=== PATIENT | female | born 1950 | race Caucasian/White ===

== ENCOUNTER 2024-08-31 07:52 | Observation (INO) ==
--- NOTE | 2024-08-31 08:35 | Emergency Department Note ---
History of Present Illness General Chief complaint: Illness Stated complaint: TROUBLE BREATHING, LOW GRADE FEVER, SWOLLEN THROAT Time Seen by Provider: 08/31/24 08:23 Source: patient, family ( who is at the bed), RN notes reviewed and old records reviewed (Old medical records were attempted to be reviewed but there are no old records at this hospital. Nurse's notes were reviewed and I agree with.) Mode of arrival: ambulatory Limitations: no limitations History of Present Illness Maximum Pain Intensity: 6 This patient is a 74-year-old female who comes in after complaining of a sore throat and cough. She started feeling sick on Sunday or she initially had nausea vomiting diarrhea but that got better she has a cough which is nonproductive she had a low-grade temperature her was also sick. She did a home COVID test yesterday was positive her throat was very sore this morning it was those gotten a lot better she says it has been restricting how much she eats or drinks at times she occasionally feels short of breath with this no chest pain or palpitation no abdominal pain. She has had decreased urine output she feels and decreased saliva. She has been try to drink some electrolytes. No rash. Home Medications Medication Instructions Recorded Confirmed Type calcium carbonate 500 mg PO DAILY 08/31/24 08/31/24 History turmeric 400 mg capsule 400 mg PO DAILY 08/31/24 08/31/24 History vitamins A,C,X-lwel-rhnuia 4,296 1 cap PO AMPM 08/31/24 08/31/24 History mcg-226 mg-90 mg capsule (PreserVision AREDS) Allergies Allergy/AdvReac Type Severity Reaction Status Date / Time morphine Allergy Verified 08/31/24 09:02 Penicillins Allergy Verified 08/31/24 09:02 Past Med/Surg History Problem List (Updated 08/31/24 @ 14:38 by Ariel Jenkins MD) Pharyngitis (Acute) ST segment changes on electrocardiogram (Acute) HLD (hyperlipidemia) Chest pain at rest (Acute) COVID-19 (Acute) Encounter for HCV screening test for low risk patient Medicare annual wellness visit, subsequent Medical History HLD (hyperlipidemia) Surgical History Hx of cholecystectomy Hx of hysterectomy, total History of cataract surgery Hx of tonsillectomy Family History Aunt Breast cancer Social History Smoking Status: Never smoker Second Hand Exposure: No; Do You Dip or Chew Tobacco: No; Hx Alcohol Use: Yes Alcohol type: wine Alcohol Intake Frequency: 2-4 x/Month Hx Substance Use: No Preferred Language: Moroccan Beliefs That Will Affect Care: None marital status: Current Living Situation: Spouse current occupational status: retired current occupation: book keeping How many Children do You have: 2 Feels Safe at Home: Yes Childhood Exposure to Second-Hand Smoke: Yes Dental Care, Regularly: Yes Seatbelt Use: always Sunscreen Use: No Do you think of yourself as: straight/heterosexual Gender Identity: Female Review of Systems A total of 10 systems reviewed and were otherwise negative Physical Exam Vital Signs Vital Signs - 24 hr 08/31/24 07:59 08/31/24 08:48 08/31/24 08:50 Temperature 37.4 C Temperature Source Temporal Artery Scan Pulse Rate 97 H 79 84 Pulse Rate [Finger] Pulse Rate from SpO2 Sensor Pulse Rhythm Regular Pulse Rhythm [Finger] Pulse Strength [Finger] Respiratory Rate 20 20 Respiratory Effort / Characteristics Non-Labored Spontaneous Respiratory Depth Normal Respiratory Pattern Regular Blood Pressure 144/89 H Blood Pressure [Right Arm] Blood Pressure Mean 107 Blood Pressure Mean [Right Arm] Blood Pressure Position [Right Arm] Pulse Oximetry 96 96 Oxygen Delivery Method Room Air Room Air Sepsis Recent Fever Within 48 Hours No Sepsis New/Unexplained Change in Mental Status N/A Sepsis Action Taken by Nursing No Action Required 08/31/24 08:50 08/31/24 09:27 08/31/24 10:00 Temperature Temperature Source Pulse Rate 84 78 73 Pulse Rate [Finger] Pulse Rate from SpO2 Sensor 82 79 75 Pulse Rhythm Pulse Rhythm [Finger] Pulse Strength [Finger] Respiratory Rate 21 22 13 Respiratory Effort / Characteristics Respiratory Depth Respiratory Pattern Blood Pressure 170/84 H 141/81 H 170/84 H Blood Pressure [Right Arm] Blood Pressure Mean 115 101 112 Blood Pressure Mean [Right Arm] Blood Pressure Position [Right Arm] Pulse Oximetry 95 95 98 Oxygen Delivery Method Sepsis Recent Fever Within 48 Hours Sepsis New/Unexplained Change in Mental Status Sepsis Action Taken by Nursing 08/31/24 11:00 08/31/24 12:33 08/31/24 14:00 Temperature Temperature Source Pulse Rate Pulse Rate [Finger] 75 73 79 Pulse Rate from SpO2 Sensor Pulse Rhythm Pulse Rhythm [Finger] Regular Regular Regular Pulse Strength [Finger] Normal Normal Normal Respiratory Rate 18 18 18 Respiratory Effort / Characteristics Non-Labored Spontaneous Non-Labored Spontaneous Non-Labored Spontaneous Respiratory Depth Normal Normal Normal Respiratory Pattern Blood Pressure Blood Pressure [Right Arm] 162/82 H 140/71 165/87 H Blood Pressure Mean Blood Pressure Mean [Right Arm] 108 94 113 Blood Pressure Position [Right Arm] Sitting Lying Lying Pulse Oximetry 96 94 96 Oxygen Delivery Method Room Air Room Air Room Air Sepsis Recent Fever Within 48 Hours Sepsis New/Unexplained Change in Mental Status Sepsis Action Taken by Nursing 08/31/24 14:27 Temperature Temperature Source Pulse Rate 77 Pulse Rate [Finger] Pulse Rate from SpO2 Sensor Pulse Rhythm Pulse Rhythm [Finger] Pulse Strength [Finger] Respiratory Rate Respiratory Effort / Characteristics Respiratory Depth Respiratory Pattern Blood Pressure Blood Pressure [Right Arm] Blood Pressure Mean Blood Pressure Mean [Right Arm] Blood Pressure Position [Right Arm] Pulse Oximetry Oxygen Delivery Method Sepsis Recent Fever Within 48 Hours Sepsis New/Unexplained Change in Mental Status Sepsis Action Taken by Nursing General: Well developed well nourished [id number] older female who appears in no acute distress, breathing comfortably on room air. Normal speech, not muffled, speaking swallow without difficulty. No drooling. HEENT: Normal cephalic atraumatic. Pupils are equal round and reactive to light. Extraocular movements are intact. Oropharynx is pink with moist mucous membranes. No swelling of the mouth lips or tongue. No stridor. No swelling the posterior oropharynx. Posterior oropharynx is wide open. No swelling of the tongue no angioedema. Neck: Supple with a midline trachea. No meningeal signs or stiffness, no JVD or bruits. No Stridor. Chest: Clear to auscultation bilaterally. No wheezes or rhonchi. No increased work of breathing. Heart: Regular rate and rhythm without murmurs or gallops. Abdomen: Soft nontender, nondistended without rebound guarding or rigidity. Extremities: No cyanosis clubbing or edema. No calf tenderness or assymetry Spine/Back. Non tender to palpation. No CVA tenderness Skin: Good turgor without rashes. Neurologic exam: Cranial nerves two through 12 are intact. Motor and sensation are intact and symmetrical throughout. Course Administered Medications Discontinued Medications Sodium Chloride (Nss) 1,000 mls @ 999 mls/hr IV .Q1H1M ONE Stop: 08/31/24 09:33 Last Infusion: 08/31/24 09:53 Dose: Infused Documented By: Admin: 08/31/24 09:00 Dose: 999 mls/hr Documented By: EVIE Ioversol (Optiray 320 125ml) 118 ml IV ONCE ONE Stop: 08/31/24 10:46 Last Admin: 08/31/24 10:45 Dose: 118 ml Documented By: SOFIA Ketorolac Tromethamine (Ketorolac Tromethamine 15 Mg/Ml Vial) 10 mg IV NOW ONE Stop: 08/31/24 08:34 Last Admin: 08/31/24 09:01 Dose: 10 mg Documented By: EVIE Medical Decision Making Differential Diagnosis COVID, strep pharyngitis, URI, pneumonia, dehydration, electrolyte or metabolic abnormality Medical Records Attestation: I reviewed the patient's medical records. Home Medications Current Medication List: was personally reviewed by me Laboratory Data Attestation: I reviewed the patient's lab results. 08/31/24 09:05 08/31/24 09:05 Lab Results 08/31/24 08/31/24 Range/Units 09:00 09:05 WBC 6.29 (4.8-10.8) K/ul RBC 4.69 (4.20-5.40) M/uL Hgb 13.8 (12.0-16.0) g/dl Hct 41.2 (37.0-47.0) % MCV 87.8 (80.0-100.0) fL MCH 29.4 (25.0-34.0) pg MCHC 33.5 (32.0-36.0) g/dL RDW Std Deviation 43.7 (36.4-46.3) fL RDW Coeff of Annette 13.6 (11.5-14.5) % Plt Count 152 (130-400) K/uL MPV 10.1 (9.4-12.4) fL Immature Gran % (Auto) 0.3 % Neut % (Auto) 74.1 % Lymph % (Auto) 12.7 % Pender % (Auto) 10.2 % Eos % (Auto) 2.4 % Baso % (Auto) 0.3 % Neut # (Auto) 4.66 (1.40-6.50) K/uL Lymph # (Auto) 0.80 L (1.20-3.40) K/uL Pender # (Auto) 0.64 H (0.11-0.59) K/uL Eos # (Auto) 0.15 (0.00-0.50) K/uL Baso # (Auto) 0.02 (0.00-0.20) K/uL Immature Gran # (Auto) 0.02 (0.01-0.20) K/uL D-Dimer 640 H* (0-500) ug/L FEU Sodium 135 L (136-145) mmol/L Potassium 3.6 (3.5-5.1) mmol/L Chloride 101 (98-107) mmol/L Carbon Dioxide 27 (21-32) mmol/L Anion Gap 7 (3-11) BUN 12 (6-23) mg/dl Creatinine 0.61 (0.6-1.2) mg/dl Est Cr Clr Drug Dosing 77.4 ml/min eGFR 93.76 BUN/Creatinine Ratio 19.7 (10-20) Glucose 115 H (70-99(Fasting)) mg/dl Calcium 8.6 (8.6-10.3) mg/dl Total Bilirubin 0.4 (0.2-1.0) mg/dl AST 17 (13-39) U/L ALT 17 (7-52) U/L Alkaline Phosphatase 57 (34-104) U/L Troponin I High Sens 7.3 (0-14) pg/ml Total Protein 6.5 (6.0-8.3) gm/dl Albumin 4.1 (3.4-5.0) gm/dl Globulin 2.4 L (2.5-4.0) gm/dl Albumin/Globulin Ratio 1.7 (0.9-2) SARS-CoV-2, RNA, NAAT POSITIVE A (NEGATIVE) Group A Strep (PCR) NOT DETECTED (NotDetected) Imaging Data Attestation: I personally reviewed and interpreted this imaging study as follows: My Impression: Chest x-rayno acute infiltrate, failure, pneumothorax seen. There seems to be some hilar prominence bilaterally Radiologist's Impression: Chest X-Ray 08/31/24 08:33 SINGLE VIEW CHEST CLINICAL HISTORY: Atypical chest pain. FINDINGS: An AP, portable, upright chest radiograph is obtained. No prior studies are available for comparison at the time of dictation. The heart is mildly enlarged. The pulmonary vasculature is noncongested. There is bibasilar atelectasis and mild elevation of left hemidiaphragm. The lungs and pleural spaces are otherwise clear. No pneumothorax is seen. The skeletal structures are osteopenic. The bony thorax is grossly intact. IMPRESSION: No acute cardiopulmonary abnormality. ACT 112: Negative or not required by law. Electronically signed by: Jonathan Back M.D. 08/31/2024 9:11 AM Chest CTA 08/31/24 10:24 CT angio chest PE protocol CLINICAL HISTORY: PE TECHNIQUE: Multidetector row helical CT of the chest was performed with angiographic protocol. Coronal and sagittal reformations were obtained. Coronal and sagittal MIPS were obtained from the axial data set and were submitted for review. Automated dose lowering techniques and/or adjustment according to patient size were utilized for this exam. Comparison: Comparison is made to chest radiograph 08/31/2024 FINDINGS: Lungs and pleura: Pulmonary nodules are seen including a 3 mm nodule in the right apex (series 4 image 177) and a 3 mm nodule in the left lower lobe (image 88). Heart and pericardium: Heart size is normal. No pericardial effusion. Vessels: No evidence of pulmonary embolism. Mediastinum and deanne: Unremarkable. Chest wall and lower neck: Small thyroid nodules are noted which do not require follow-up by ACR criteria. Abdomen: A hiatal hernia is seen. Bones: Degenerative changes in the thoracic spine. IMPRESSION: 1. No acute abnormality and in particular no evidence of pulmonary embolus. 2. Pulmonary nodules as above. According to Fleischner criteria, no follow-up is required in low risk patients, in high-risk patients, a 12 month follow-up CT can be optionally performed. ACT 112: Negative or not required by law. Electronically signed by: Ab Patel M.D. 08/31/2024 11:04 AM ECG Data Attestation: I personally reviewed and interpreted this ECG as follows: Indication: + chest pain and + SOB/dyspnea Rate (beats per minute): 82 Rhythm: + normal sinus ECG Intervals/blocks: + Normal QRS and + Normal QT ECG Seaton: + Normal ECG ST segments: + ST depression (Anterolateral) ECG Findings: + Other (T wave inversions anterior laterally and inferiorly) Comparison ECG Date: no prior available MDM Narrative This patient comes in described above. She was placed in room C5 and respiratory isolation. She looks well, she is not hypoxemic. She complains of a sore throat. she has no drooling , no stridor, no evidence of airway compromise. There is no evidence of angioedema or peritonsillar abscess. COVID testing was done as well as strep. Given the concern for dehydration , she was given 1 L IV normal saline bolus she was also given Toradol 10 mg IV for pain she tells me she done okay with NSAIDs in the past. Labs were obtained as well as chest x-ray. She was reassessed frequently. COVID testing was positive strep was negative. She is feeling a lot better after the fluids and the Toradol. Chest x-ray shows no acute infiltrate, failure, pneumothorax. Her EKG shows significant abnormalities with lateral ST and T wave abnormalities as well as inferiorly. Her troponin is negative. Her D-dimer is mildly elevated chest CT shows no evidence of PE. I talked to her at length she has did have chest pain on Sunday has had chest pain off and on it sounds like she may have had a cardiac workup in the past some of this EKG findings may be old but I am concerned that this may have not been addressed. I do think she needs to be admitted/observed for further inpatient treatment and evaluation. I have discussed the case with the [facility] hospitalist and she will be admitted/observed for these measures. Continuous cardiac monitoring call orders placed in EMR for continuous cardiac monitoring: Pulm evaluation patient noted to be in normal sinus rhythm at 75 Impression & Plan COVID-19, Chest pain at rest, ST segment changes on electrocardiogram, Pharyngitis Discharge Plan Visit Data Chief Complaint: Illness Stated Complaint: TROUBLE BREATHING, LOW GRADE FEVER, SWOLLEN THROAT ED Provider: Ariel Jenkins Discharge Problem: COVID-19, Chest pain at rest, ST segment changes on electrocardiogram, Pharyngitis Forms Stand Alone Forms: My [facility] Prescriptions Prescriptions: No Action calcium carbonate [Calcium 500] 500 mg calcium (1,250 mg) Tablet 500 mg PO DAILY PreserVision AREDS 4,296 mcg-226 mg-90 mg Capsule 1 cap PO AMPM turmeric 400 mg Capsule 400 mg PO DAILY Referrals Referrals: Ludin Duran MD [Primary Care Provider] - Discharge Problem: Pharyngitis Qualifiers: Pharyngitis/tonsillitis etiology: unspecified etiology Qualified Code(s): J02.9 - Acute pharyngitis, unspecified
[2024-08-31] MEDS: SODIUM CHLORIDE 0.9% 1,000 ML IV ONE (09:00)
[2024-08-31] MEDS: KETOROLAC TROMETHAMINE 15 MG/ML VIAL IV ONE (09:01)
--- NOTE | 2024-08-31 09:13 | XRay Report ---
SINGLE VIEW CHEST CLINICAL HISTORY: Atypical chest pain. FINDINGS: An AP, portable, upright chest radiograph is obtained. No prior studies are available for c omparison at the time of dictation. The heart is mildly enlarged. The pulmonary vasculature is noncon gested. There is bibasilar atelectasis and mild elevation of left hemidiaphragm. The lungs and pleura l spaces are otherwise clear. No pneumothorax is seen. The skeletal structures are osteopenic. The nicole ny thorax is grossly intact. IMPRESSION: No acute cardiopulmonary abnormality. ACT 112: Negative or not required by law. Electronically signed by: Jonathan Back M.D. 08/31/2024 9:11 AM
[2024-08-31 09:28] LABS: Basophils # (auto) 0.02 K/uL (0.00-0.20); Basophils % (auto) 0.3 %; Eosinophils # (auto) 0.15 K/uL (0.00-0.50); Eosinophils % (auto) 2.4 %; Hematocrit (blood only) 41.2 % (37.0-47.0); Hemoglobin 13.8 g/dl (12.0-16.0); Immature Granulocytes # (auto) 0.02 K/uL (0.01-0.20); Immature Granulocytes % (auto) 0.3 %; Lymphocytes % (auto) 12.7 %; Mean Corpuscular Hemoglobin 29.4 pg (25.0-34.0); Mean Corpuscular Hgb Conc 33.5 g/dL (32.0-36.0); Mean Corpuscular Volume 87.8 fL (80.0-100.0); Mean Platelet Volume 10.1 fL (9.4-12.4); Monocytes # (auto) 0.64 K/uL (0.11-0.59); Monocytes % (auto) 10.2 %; Neutrophils # (auto) 4.66 K/uL (1.40-6.50); Neutrophils % (auto) 74.1 %; Platelet Count 152 K/uL (130-400); RDW Coefficient of Variation 13.6 % (11.5-14.5); RDW Standard Deviation 43.7 fL (36.4-46.3); Red Blood Count 4.69 M/uL (4.20-5.40); White Blood Count 6.29 K/ul (4.8-10.8)
[2024-08-31 09:41] LABS: Albumin Globulin Ratio 1.7 (0.9-2); Albumin Level 4.1 gm/dl (3.4-5.0); BUN Creatinine Ratio 19.7 (10-20); Bilirubin,Total 0.4 mg/dl (0.2-1.0); Calcium 8.6 mg/dl (8.6-10.3); Creatinine Clr Calc Pharmacy 77.4 ml/min; Globulin 2.4 gm/dl (2.5-4.0); Potassium 3.6 mmol/L (3.5-5.1); Total Protein 6.5 gm/dl (6.0-8.3)
[2024-08-31 09:47] LABS: Troponin I High Sensitivity 7.3 pg/ml (0-14)
[2024-08-31 10:14] LABS: D Dimer 640 ug/L FEU (0-500)
[2024-08-31] MEDS: OPTIRAY 320 125ml IV ONE (10:45)
--- NOTE | 2024-08-31 11:06 | CT Scan Report ---
CT angio chest PE protocol CLINICAL HISTORY: PE TECHNIQUE: Multidetector row helical CT of the chest was performed with angiographic protocol. Villagomez l and sagittal reformations were obtained. Coronal and sagittal MIPS were obtained from the axial arnie a set and were submitted for review. Automated dose lowering techniques and/or adjustment according to patient size were utilized for this exam. Comparison: Comparison is made to chest radiograph 08/31/2024 FINDINGS: Lungs and pleura: Pulmonary nodules are seen including a 3 mm nodule in the right apex (series 4 imag e 177) and a 3 mm nodule in the left lower lobe (image 88). Heart and pericardium: Heart size is normal. No pericardial effusion. Vessels: No evidence of pulmonary embolism. Mediastinum and deanne: Unremarkable. Chest wall and lower neck: Small thyroid nodules are noted which do not require follow-up by ACR phillip darling. Abdomen: A hiatal hernia is seen. Bones: Degenerative changes in the thoracic spine. IMPRESSION: 1. No acute abnormality and in particular no evidence of pulmonary embolus. 2. Pulmonary nodules as above. According to Fleischner criteria, no follow-up is required in low ris k patients, in high-risk patients, a 12 month follow-up CT can be optionally performed. ACT 112: Negative or not required by law. Electronically signed by: Ab Patel M.D. 08/31/2024 11:04 AM
--- NOTE | 2024-08-31 11:57 | History & Physical Report ---
Date of Service August 31, 2024 Assessment & Plan (1) COVID-19: Plan: Symptoms started 4 days ago Home COVID test positive SARS positive in the ED today No fever or hypoxia. Continue supportive care Airborne precautions (2) Chest pain at rest: Plan: Patient with long standing history of "crushing chest pain". Per patient report, previous workup including stress test, NM study were negative. ASA 81 mg PO Daily with first dose now ECHO ordered Admit to telemetry Will hold on cardiology consult for now pending echo and repeat troponin today Heparin 5000 units SQ Q8H NPO pending echo results. Sips and ice chips ok (3) HLD (hyperlipidemia): Plan: Currently not being treated Follow up with PCP as an outpatient Plan Will admit the patient on telemetry overnight for observation. Echocardiogram and follow-up labs are pending DVT prophylaxis with ADI Jack, heparin 5000 units subcu every 8 hours History of Present Illness Primary Care Provider: Ludin Duran MD Attending: Dr. Gutierrez This is a 74-year-old female that has been in relatively good health. She moved to [facility] from [place] 2 years ago. Over the last 3 to 4 years she has had ongoing issues with crushing chest pain unrelated to exercise or exertion. She has also had associated shortness of breath. She began having increased chest pain last Sunday. Patient reports that she took nitroglycerin and chest pain resolved. On Sunday night she began having cough and shortness of breath. She took a COVID test and that was positive. EKG was performed in the emergency department shows ST and T wave abnormalities with sinus rhythm with premature atrial complexes. Patient reports that she has had cardiac workup in [place] and no definitive findings. Workup including EKG as well as stress echo and nuclear medicine scan. No history of cardiac catheterization. Patient is currently not on any antihypertensives. Blood pressure slightly elevated 162/82. Patient is afebrile. SpO2 96% on room air. Heart rate is 75 and regular. Patient is lifetime non-smoker. No ethanol use. Allergies Allergy/AdvReac Type Severity Reaction Status Date / Time morphine Allergy Verified 08/31/24 09:02 Penicillins Allergy Verified 08/31/24 09:02 Home Medications Medication Instructions Recorded Confirmed Type calcium carbonate 500 mg PO DAILY 08/31/24 08/31/24 History turmeric 400 mg capsule 400 mg PO DAILY 08/31/24 08/31/24 History vitamins A,C,I-nxft-ngpwzm 4,296 1 cap PO AMPM 08/31/24 08/31/24 History mcg-226 mg-90 mg capsule (PreserVision AREDS) Past Med/Surg History Problem List (Updated 08/31/24 @ 12:13 by Jonathan Mcdonnell PA-C) HLD (hyperlipidemia) Chest pain at rest COVID-19 Encounter for HCV screening test for low risk patient Medicare annual wellness visit, subsequent Medical History HLD (hyperlipidemia) Surgical History Hx of cholecystectomy Hx of hysterectomy, total History of cataract surgery Hx of tonsillectomy Family History Aunt Breast cancer Social History Smoking Status: Never smoker Second Hand Exposure: No; Do You Dip or Chew Tobacco: No; Hx Alcohol Use: Yes Alcohol type: wine Alcohol Intake Frequency: 2-4 x/Month Hx Substance Use: No Preferred Language: Greek Beliefs That Will Affect Care: None marital status: Current Living Situation: Spouse current occupational status: retired current occupation: book keeping How many Children do You have: 2 Feels Safe at Home: Yes Childhood Exposure to Second-Hand Smoke: Yes Dental Care, Regularly: Yes Seatbelt Use: always Sunscreen Use: No Do you think of yourself as: straight/heterosexual Gender Identity: Female Review of Systems 2 Review of Systems: A total of 10 systems was reviewed and is negative other than as listed in the HPI Physical Exam 2 Physical Exam: GENERAL : No acute distress EYES: No icterus, gaze conjugate NOSE: No evidence of epistaxis MOUTH: No lesions or candidiasis NECK: Supple LUNGS: CTA B/L, no wheezes, rales or rhonchi HEART: Regular, rate controlled at 77 bpm ABDOMEN: Soft, NT, ND, BS Present EXTREMITIES: No LE edema, pedal pulses intact NEURO: A&OX3 Results & Data Results & Data Vital Signs (Past 12 Hours) Vital Signs Temp Pulse Pulse Resp BP BP Pulse Ox 08/31/24 11:00 75 18 162/82 H 96 08/31/24 10:00 73 13 170/84 H 98 08/31/24 09:27 78 22 141/81 H 95 08/31/24 08:50 84 21 170/84 H 95 08/31/24 08:50 84 08/31/24 08:48 79 20 96 08/31/24 07:59 37.4 C 97 H 20 144/89 H 96 O2 Del Method 08/31/24 11:00 Room Air 08/31/24 10:00 08/31/24 09:27 08/31/24 08:50 08/31/24 08:50 08/31/24 08:48 Room Air 08/31/24 07:59 Room Air Laboratory Results 08/31/24 09:05 08/31/24 09:05 Diagnostic Findings Chest X-Ray 08/31/24 08:33 SINGLE VIEW CHEST CLINICAL HISTORY: Atypical chest pain. FINDINGS: An AP, portable, upright chest radiograph is obtained. No prior studies are available for comparison at the time of dictation. The heart is mildly enlarged. The pulmonary vasculature is noncongested. There is bibasilar atelectasis and mild elevation of left hemidiaphragm. The lungs and pleural spaces are otherwise clear. No pneumothorax is seen. The skeletal structures are osteopenic. The bony thorax is grossly intact. IMPRESSION: No acute cardiopulmonary abnormality. ACT 112: Negative or not required by law. Electronically signed by: Jonathan Back M.D. 08/31/2024 9:11 AM Chest CTA 08/31/24 10:24 CT angio chest PE protocol CLINICAL HISTORY: PE TECHNIQUE: Multidetector row helical CT of the chest was performed with angiographic protocol. Coronal and sagittal reformations were obtained. Coronal and sagittal MIPS were obtained from the axial data set and were submitted for review. Automated dose lowering techniques and/or adjustment according to patient size were utilized for this exam. Comparison: Comparison is made to chest radiograph 08/31/2024 FINDINGS: Lungs and pleura: Pulmonary nodules are seen including a 3 mm nodule in the right apex (series 4 image 177) and a 3 mm nodule in the left lower lobe (image 88). Heart and pericardium: Heart size is normal. No pericardial effusion. Vessels: No evidence of pulmonary embolism. Mediastinum and deanne: Unremarkable. Chest wall and lower neck: Small thyroid nodules are noted which do not require follow-up by ACR criteria. Abdomen: A hiatal hernia is seen. Bones: Degenerative changes in the thoracic spine. IMPRESSION: 1. No acute abnormality and in particular no evidence of pulmonary embolus. 2. Pulmonary nodules as above. According to Fleischner criteria, no follow-up is required in low risk patients, in high-risk patients, a 12 month follow-up CT can be optionally performed. ACT 112: Negative or not required by law. Electronically signed by: Ab Patel M.D. 08/31/2024 11:04 AM ECG Additional Comments: Code Status & VTE Plan Code Status Full resuscitation VTE Prophylaxis Plan VTE Prophylaxis will be ordered: Yes Supervising Physician Co-Signing Physician Notes Patient was seen and examined independently I discussed the case with Jonathan LEONARDO I reviewed pertinent past medical social family history and also the plan of care and agree with the plan of care. Patient presented with a sore throat but has had normal EKG. She also test positive for COVID. She reportedly had chest pain a week ago and resolved with nitroglycerin. In 2017 she had cardiac evaluation in [place] which was subsequent to significant life event at that time she had chest pressure but evaluation was negative. Evaluation reveals an erythematous posterior pharynx otherwise normal examination. There is better subjective appearance of dyspnea her oxygen saturations are excellent on room air Biggest concern is her markedly abnormal EKG. Patient with an echocardiogram and serial troponin testing. Patient does not meet criteria for any COVID testing. Pending evaluation for her cardiac status cardiology consult could be undertaken. Patient is initiated on aspirin therapy. Any exceptions will be noted below PG Care Time/CCT Total # of Minutes Spent Total Time Spent with Patient: Total time spent is greater than 50% in coordination of care (as documented) at patient's floor/unit and/or counseling patient: 60 minutes Coding Level of Care Code 60203 INT INP/OBS CARE 2/55MIN Diagnoses COVID-19 U07.1 Chest pain at rest R07.9 HLD (hyperlipidemia) E78.5 Time Spent (min) 60
--- NOTE | 2024-08-31 15:10 | XCELERA ---
[id number]
[2024-08-31] MEDS: ACETAMINOPHEN 500 MG TAB PO STA (16:03)
[2024-08-31] MEDS ORDERED: ALUMINUM/MAGNESIUM SUSP 30 ML UDC PO PRN (17:22)
[2024-08-31] MEDS ORDERED: NITROGLYCERIN SL 0.4 MG/TAB TAB SL PRN (17:22)
[2024-08-31] MEDS ORDERED: MAGNESIUM HYDROXIDE SUSP 30 ML UDC PO PRN (17:22)
[2024-08-31] MEDS ORDERED: ONDANSETRON INJ 2 MG/ML 2 ML VIAL IV PRN (17:22)
[2024-08-31] MEDS: ASPIRIN 81 MG ECTAB PO SCH (18:36)
[2024-08-31] MEDS: HEPARIN SOD 5,000 UNIT/0.5 ML VIAL SQ SCH (18:37)
[2024-08-31] MEDS: CEROVITE ADV FORMULA TAB PO SCH (21:23)
[2024-09-01] MEDS: CHLORASEPTIC (PHENOL) 1.4% SOLN 180 ML BTL MT PRN (00:02)
[2024-09-01] MEDS: COUGH DROP (SUGAR FREE) LOZ 24 LOZ/1 BOX BUCCAL PRN (00:22)
[2024-09-01] MEDS: ACETAMINOPHEN 325 MG TAB PO PRN (06:07)
[2024-09-01 07:44] LABS: Basophils # (auto) 0.01 K/uL (0.00-0.20); Basophils % (auto) 0.2 %; Hematocrit (blood only) 38.6 % (37.0-47.0); Hemoglobin 12.8 g/dl (12.0-16.0); Immature Granulocytes # (auto) 0.01 K/uL (0.01-0.20); Immature Granulocytes % (auto) 0.2 %; Lymphocytes % (auto) 27.8 %; Mean Corpuscular Hgb Conc 33.2 g/dL (32.0-36.0); Mean Corpuscular Volume 87.5 fL (80.0-100.0); Mean Platelet Volume 10.2 fL (9.4-12.4); Monocytes # (auto) 0.62 K/uL (0.11-0.59); Monocytes % (auto) 12.3 %; Neutrophils # (auto) 2.99 K/uL (1.40-6.50); Neutrophils % (auto) 59.5 %; Platelet Count 118 K/uL (130-400); RDW Coefficient of Variation 13.5 % (11.5-14.5); RDW Standard Deviation 43.3 fL (36.4-46.3); Red Blood Count 4.41 M/uL (4.20-5.40); White Blood Count 5.03 K/ul (4.8-10.8)
[2024-09-01] MEDS: CEROVITE ADV FORMULA TAB PO SCH (07:46)
[2024-09-01] MEDS: CALCIUM CARBONATE 1250MG TAB PO SCH (07:46)
[2024-09-01 07:50] LABS: Calcium 8.2 mg/dl (8.6-10.3); Creatinine Clr Calc Pharmacy 96.2 ml/min; Magnesium 1.8 mg/dl (1.7-2.4); Potassium 3.3 mmol/L (3.5-5.1)
--- NOTE | 2024-09-01 07:50 | XRay Report ---
XR chest 1V portable CLINICAL HISTORY: COVID with SOB COMPARISON STUDY: Chest radiograph and chest CT August 31, 2024. FINDINGS: There is mild elevation of the left hemidiaphragm. Lungs are clear. There is no pneumothora x or pleural effusion. Cardiac size is normal. Mediastinal contours are normal. There is no evidence for pulmonary edema. IMPRESSION: No acute cardiopulmonary findings. ACT 112: Negative or not required by law. Electronically signed by: Kingsley Booth M.D. 09/01/2024 7:49 AM
[2024-09-01] MEDS: HEPARIN SOD 5,000 UNIT/0.5 ML VIAL SQ SCH (08:07)
[2024-09-01] MEDS: POTASSIUM CHLORIDE CRTAB 20 MEQ TABCR PO STA (08:15)
[2024-09-01 11:37] VITALS: BP 135/78; PULSE 77; RESP 16; TEMP 98.2; O2SAT 93
--- NOTE | 2024-09-01 13:14 | Cardiology Consultation ---
Date of Consultation September 01, 2024 Assessment & Plan (1) Abnormal EK. Preserved LV function 3. Paroxysmal SVT 4. COVID-19 infection 5. Pharyngitis Patient seen today in the setting of abnormal EKG with notable anterior ST depressions and T wave inversions. HS TropI negative x 2. Echo shows preserved LV function with no regional wall motion abnormalities. Minimal coronary artery calcification on CT. Has had no real recent chest pain since admission. Overall very low suspicion for ACS and relatively low suspicion for high risk obstructive disease. Still with ECG do recommend additional long-term risk stratification with exercise stress echo as an outpatient. No need for further cardiac testing while admitted. Has also had brief episodes of paroxysmal SVT on telemetry. Question whether these could be contributing to brief episodes of atypical chest symptoms she has had prior to recent illness or if more related to current viral infection. Recommendations: Continue to monitor on telemetry while admitted Outpatient exercise stress echo when COVID symptoms resolved. Will arrange Will consider additional ambulatory monitoring Can follow-up with cardiology after stress test. History of Present Illness Attending Physician: Selam Montoya MD History of Present Illness Ms. Eckert is a very pleasant 74-year-old woman admitted with sore throat, shortness of breath found to be positive for COVID. Cardiology consult in the setting of prior chest pain and abnormal ECG. No prior cardiac conditions. States previously underwent cardiac workup approximately 7 years ago in [place] with echocardiogram, stress test, ambulatory monitoring in the setting of chest discomfort. Per patient that testing was negative. Has never had a heart catheterization. More recently reports that she will periodically have episodes of burning chest discomfort radiating up into her neck. These episodes come out of the blue reports 2 episodes at judaism. They usually last seconds. No associated palpitations or presyncope. Active at baseline and denies any exertional chest pain. Has had no such episodes in the last few days. Sore throat progressively worse over the last 3 days and feels was making it hard for her to breathe, almost gasping. Feeling somewhat improved since admission. ECG showed normal sinus rhythm with ST depressions in V2 through V6 as well as T wave inversions inferiorly. Echocardiogram showed preserved LV function with no regional wall motion abnormalities. D-dimer positive. CTA negative for PE with minimal LAD CAC. HS TropI negative x 2. Telemetry has shown sinus rhythm with brief asymptomatic episodes of paroxysmal SVT up to 130s primarily overnight while sleeping. Family history: Sister had heart rhythm issues and underwent a cardioversion. Social history: Non-smoker. 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 Remarried and moved to the area from [place]. Allergies Allergy/AdvReac Type Severity Reaction Status Date / Time morphine Allergy Verified 08/31/24 09:02 Penicillins Allergy Verified 08/31/24 09:02 Home Medications Medication Instructions Recorded Confirmed Type calcium carbonate 500 mg PO DAILY 08/31/24 08/31/24 History turmeric 400 mg capsule 400 mg PO DAILY 08/31/24 08/31/24 History vitamins A,C,A-qcig-viksbq 4,296 1 cap PO AMPM 08/31/24 08/31/24 History mcg-226 mg-90 mg capsule (PreserVision AREDS) Patient History Medical History HLD (hyperlipidemia) Surgical History Hx of cholecystectomy Hx of hysterectomy, total History of cataract surgery Hx of tonsillectomy Family History Aunt Breast cancer Social History Smoking Status: Never smoker Second Hand Exposure: No; Do You Dip or Chew Tobacco: No; Hx Alcohol Use: No Hx Substance Use: No Preferred Language: Amharic Communication Ability: Effective Relief Cook Required: No Beliefs That Will Affect Care: None marital status: Current Living Situation: Spouse Current Living Situation Comment: Home with current occupational status: retired current occupation: book keeping How many Children do You have: 2 Feels Safe at Home: Yes Childhood Exposure to Second-Hand Smoke: Yes Dental Care, Regularly: Yes Seatbelt Use: always Sunscreen Use: No Do you think of yourself as: straight/heterosexual Gender Identity: Female Assistive Devices: Glasses Review of Systems Review of Systems: All systems reviewed & are unremarkable except as noted in HPI & below Physical Exam Physical Exam: General: Comfortable HEENT: Sclerae anicteric Lungs: Clear to auscultation bilaterally, no crackles or wheezes Cardiac: Regular rate and rhythm, no murmurs. Vascular: 2+ radial Abdomen: Soft, nontender Extremities: Well perfused, no peripheral edema Neuro: Nonfocal Psych: Alert orient x3, normal affect and mood Results & Data Vital Signs (Past 12 Hours) Vital Signs Temp Pulse Pulse Resp BP Pulse Ox O2 Del Method 09/01/24 11:36 98.2 F 77 16 135/78 93 Room Air 09/01/24 07:54 99.0 F 74 20 134/70 97 Room Air 09/01/24 07:50 Room Air 09/01/24 07:33 76 09/01/24 03:35 98.6 F 74 18 150/81 H 94 Room Air PG Care Time/CCT Total # of Minutes Spent Total Time Spent with Patient: Total time spent is greater than 50% in coordination of care (as documented) at patient's floor/unit and/or counseling patient: Coding Level of Care Code 77051 INT INP/OBS CARE 2/55MIN Diagnoses Abnormal EKG R94.31
--- NOTE | 2024-09-01 13:47 | Discharge Summary ---
<Statement entered by Selam Montoya MD - 09/01/24 17:49> I have reviewed vital signs, chart notes, labs and imaging. I have also discussed the management of the patient with the [facility] and I agree with the exam findings documented in the history and physical examination and the documented assessment and plan unless otherwise stated below. Mild COVID, abnormal EKG without evidence of acute coronary syndrome and normal TTE. Previous stress testing was negative though was some years ago and records not available. Appreciate cardiology consult consultation. Continue baby aspirin, follow-up with cardiology for stress echo After resolution of COVID symptoms, the air conditioning mechanic industrial thinks that severe obstructive coronary disease is unlikely. Discharge Summary Date of Service September 01, 2024 Principal Dx & Hospital Course #1 = Principal Diagnosis (1) COVID-19: Symptoms [id number]/16days ago, Home COVID test positive CT: no PE, small nodules. Pt is low risk and does not require follow up. No fever or hypoxia. Continue supportive care continue incentive spirometer Continues to do well on room air, main concern is her sore throat, able to swallow solids and liquids. Stable for discharge home today. (2) Chest pain at rest: Patient with long standing history of "crushing chest pain". Per patient report, previous workup including stress test, NM study were negative. Troponin negative. Echo: EF 60-65, no regional wall motion abnormalities, no LVH ASA 81 mg started - recommended to continue at discharge Cardiology consulted - no inpatient workup while sick with COVID - plan for outpatient stress echo (3) HLD (hyperlipidemia): Currently not being treated - continue follow up with PCP Plan Dispo: discharge to home today Notes For Next Care Provider started on ASA 81mg, outpatient stress echo small pulm nodules - given low risk does not need follow up Medication Changes From Visit started on ASA 81mg Admission HPI Per Admitting Provider Attending: Dr. Gutierrez This is a 74-year-old female that has been in relatively good health. She moved to [facility] from [place] 2 years ago. Over the last 3 to 4 years she has had ongoing issues with crushing chest pain unrelated to exercise or exertion. She has also had associated shortness of breath. She began having increased chest pain last Sunday. Patient reports that she took nitroglycerin and chest pain resolved. On Sunday night she began having cough and shortness of breath. She took a COVID test and that was positive. EKG was performed in the emergency department shows ST and T wave abnormalities with sinus rhythm with premature atrial complexes. Patient reports that she has had cardiac workup in [place] and no definitive findings. Workup including EKG as well as stress echo and nuclear medicine scan. No history of cardiac catheterization. Patient is currently not on any antihypertensives. Blood pressure slightly elevated 162/82. Patient is afebrile. SpO2 96% on room air. Heart rate is 75 and regular. Patient is lifetime non-smoker. No ethanol use. Discharge Exam General: NAD, sitting in bed VS as above HEENT: MMM, mild erythema posterior OP, no tonsillar swelling Resp: normal respiratory effort, coarse in the bases, but no wheezing, encouraged IS CV: RRR, no murmur, Abd: normal bowel sounds, non tender, no hepatosplenomegaly Extremities: Moves all extremities, no edema Neuro: A&O x3, Skin: intact, no lesions noted Discharge Plan Discharge Items Patient Disposition: Home - Self-Care Reason For Visit: CHEST PAIN, COVID Discharge Diagnosis: Covid Activity: Resume your previous activity Weightbearing: Full weightbearing Non-emergency contact: Primary Care Provider and [employer] Call non-emergency contact if: you have any medication questions, your symptoms worsen and your temperature is above 101 Follow-up/Referrals: Ludin Duran MD [Primary Care Provider] - (follow up within 1 week ) Noe Hawk MD [Physician] - (Follow up for stress testing after COVID infection ) Diet: Heart Healthy Add Attending Provider Instructions: Ms. Eckert, You were hospitalized after having chest pain in the setting of COVID. Thankfully, your troponin (heart ezyme testing) was not elevated and you remained on room air. You did have some changes to your EKG, but we do not have prior records to know if this is chronic for you. You were seen by Cardiology, Dr. Hawk, who recommended an outpatient stress echo when your symptoms have resolved. They should contact you for an appointment, but if you do not hear from them I have attached the information above. While you are undergoing cardiac workup we have started you on baby aspirin - 81mg once a day. This may be discontinued in the future by your PCP/air conditioning mechanic industrial. I did send a prescription into the pharmacy, but this can also be purchased over the counter. Recommendations after discharge: * Supportive care for COVID - tylenol as needed for fevers and pain. Mucinex up to 1200mg twice a day for congestion * Follow CDC guidelines for isolation/masking * Continue to use incentive spirometer (plastic breathing machine given to you at the hospital) while you are recovering from COVID. 10 times every hour while awake. * Continue aspirin 81 mg every day for heart disease prevention/treatment * Follow up with your PCP within the next week * No changes to your home medications CONTACT YOUR PRIMARY CARE PROVIDER if you experience any of the following: Shortness of breath or difficulty breathing Fevers or chills Feeling tired with normal activity or experiencing dizziness or fainting Difficulty following your treatment plan, or difficulty taking medications CALL 911 OR GO TO THE EMERGENCY DEPARTMENT if you experience any of the following: Severe abdominal pain or nausea/vomiting Severe chest pain, or chest pain that radiates (moves) to your jaw or arm Sudden, severe shortness of breath or difficulty breathing Thank you for allowing us to participate in your care. Carmela Katz PA-C Pending Studies at Discharge: No Stand-Alone Forms: My [facility] [employer], Smoking Cessation Medications and DC Order Prescriptions: New aspirin 81 mg Tablet,Delayed Release (Dr/Ec) 81 mg PO QAM 30 Days Qty: 30 0RF Continued calcium carbonate [Calcium 500] 500 mg calcium (1,250 mg) Tablet 500 mg PO DAILY PreserVision AREDS 4,296 mcg-226 mg-90 mg Capsule 1 cap PO AMPM turmeric 400 mg Capsule 400 mg PO DAILY Discharge Orders: Discharge Order (Routine); Ordered 09/01/24 Ordered By: Carmela Katz Admission Data Admit Date/Time: 08/31/24 12:07 Attending Provider: Selam Montoya Admit Provider: Mark Gutierrez Primary Care Provider: Ludin Duran Other Providers: Mark Gutierrez; Cameron Wiggins; Matthew Richter; Haile Harris; Davon Zhong; Anibal Diaz; Lyle Magallon Jr; Leobardo Wiley; Liss Aguilar; Adelina Mcclure; Noe Hawk; Noe Trimble; Rebel Sorenson; Rosa Newby; Ludin Garcia; Rosalind Smith; Sammy Valentin; Dino Moore; Zana Castelan Hospital Stay Data Consultations 08/31/24 11:38 ED Decision to Admit Stat 09/01/24 08:55 Consult Cardiology Routine Diagnostic Imagining Performed Chest X-Ray 08/31/24 08:33 SINGLE VIEW CHEST CLINICAL HISTORY: Atypical chest pain. FINDINGS: An AP, portable, upright chest radiograph is obtained. No prior studies are available for comparison at the time of dictation. The heart is mildly enlarged. The pulmonary vasculature is noncongested. There is bibasilar atelectasis and mild elevation of left hemidiaphragm. The lungs and pleural spaces are otherwise clear. No pneumothorax is seen. The skeletal structures are osteopenic. The bony thorax is grossly intact. IMPRESSION: No acute cardiopulmonary abnormality. ACT 112: Negative or not required by law. Electronically signed by: Jonathan Back M.D. 08/31/2024 9:11 AM Chest CTA 08/31/24 10:24 CT angio chest PE protocol CLINICAL HISTORY: PE TECHNIQUE: Multidetector row helical CT of the chest was performed with angiographic protocol. Coronal and sagittal reformations were obtained. Coronal and sagittal MIPS were obtained from the axial data set and were submitted for review. Automated dose lowering techniques and/or adjustment according to patient size were utilized for this exam. Comparison: Comparison is made to chest radiograph 08/31/2024 FINDINGS: Lungs and pleura: Pulmonary nodules are seen including a 3 mm nodule in the right apex (series 4 image 177) and a 3 mm nodule in the left lower lobe (image 88). Heart and pericardium: Heart size is normal. No pericardial effusion. Vessels: No evidence of pulmonary embolism. Mediastinum and deanne: Unremarkable. Chest wall and lower neck: Small thyroid nodules are noted which do not require follow-up by ACR criteria. Abdomen: A hiatal hernia is seen. Bones: Degenerative changes in the thoracic spine. IMPRESSION: 1. No acute abnormality and in particular no evidence of pulmonary embolus. 2. Pulmonary nodules as above. According to Fleischner criteria, no follow-up is required in low risk patients, in high-risk patients, a 12 month follow-up CT can be optionally performed. ACT 112: Negative or not required by law. Electronically signed by: Ab Patel M.D. 08/31/2024 11:04 AM Chest X-Ray 09/01/24 08:00 XR chest 1V portable CLINICAL HISTORY: COVID with SOB COMPARISON STUDY: Chest radiograph and chest CT August 31, 2024. FINDINGS: There is mild elevation of the left hemidiaphragm. Lungs are clear. There is no pneumothorax or pleural effusion. Cardiac size is normal. Mediastinal contours are normal. There is no evidence for pulmonary edema. IMPRESSION: No acute cardiopulmonary findings. ACT 112: Negative or not required by law. Electronically signed by: Kingsley Booth M.D. 09/01/2024 7:49 AM Pending Results Patient Have Any Pending Studies at Discharge: No Discharge Instructions Given to Patient (Per Discharging Provider) Ms. Eckert, You were hospitalized after having chest pain in the setting of COVID. Thankfully, your troponin (heart ezyme testing) was not elevated and you remained on room air. You did have some changes to your EKG, but we do not have prior records to know if this is chronic for you. You were seen by Cardiology, Dr. Hawk, who recommended an outpatient stress echo when your symptoms have resolved. They should contact you for an appointment, but if you do not hear from them I have attached the information above. While you are undergoing cardiac workup we have started you on baby aspirin - 81mg once a day. This may be discontinued in the future by your PCP/air conditioning mechanic industrial. I did send a prescription into the pharmacy, but this can also be purchased over the counter. Recommendations after discharge: * Supportive care for COVID - tylenol as needed for fevers and pain. Mucinex up to 1200mg twice a day for congestion * Follow CDC guidelines for isolation/masking * Continue to use incentive spirometer (plastic breathing machine given to you at the hospital) while you are recovering from COVID. 10 times every hour while awake. * Continue aspirin 81 mg every day for heart disease prevention/treatment * Follow up with your PCP within the next week * No changes to your home medications CONTACT YOUR PRIMARY CARE PROVIDER if you experience any of the following: Shortness of breath or difficulty breathing Fevers or chills Feeling tired with normal activity or experiencing dizziness or fainting Difficulty following your treatment plan, or difficulty taking medications CALL 911 OR GO TO THE EMERGENCY DEPARTMENT if you experience any of the following: Severe abdominal pain or nausea/vomiting Severe chest pain, or chest pain that radiates (moves) to your jaw or arm Sudden, severe shortness of breath or difficulty breathing Thank you for allowing us to participate in your care. Carmela Katz PA-C Total Time Total Time Spent Total Time Spent (In Minutes): Time spent day of discharge 36 minutes including direct patient care, medication reconciliation, documentation, review of labs and images, and coordination of care. Coding Level of Care Code 91222 INP/OBS DISCH >30 MIN Diagnoses COVID-19 U07.1 Chest pain at rest R07.9 HLD (hyperlipidemia) E78.5
--- NOTE | 2024-09-01 21:21 | Electrocardiogram Report ---
Test Reason : Blood Pressure : */* mmHG Vent. Rate : 82 BPM Atrial Rate : 82 BPM P-R Int : 140 ms QRS Dur : 78 ms QT Int : 378 ms P-R-T Axes : 64 7 260 degrees QTcB Int : 441 ms Sinus rhythm with Premature atrial complexes Low voltage QRS Abnormal ECG No previous ECGs available Confirmed by Leobardo Wiley ([id number]) on 09/01/2024 9:21:12 PM Referred By: REFERRED SELF Confirmed By: Leobardo Wiley
--- NOTE | 2024-09-01 21:22 | Electrocardiogram Report ---
Test Reason : Blood Pressure : */* mmHG Vent. Rate : 78 BPM Atrial Rate : 78 BPM P-R Int : 154 ms QRS Dur : 80 ms QT Int : 392 ms P-R-T Axes : 65 18 258 degrees QTcB Int : 446 ms Normal sinus rhythm Abnormal ECG When compared with ECG of 31-Aug-2024 08:48, Premature atrial complexes are no longer Present Confirmed by Leobardo Wiley ([id number]) on 09/01/2024 9:21:43 PM Referred By: REFERRED SELF Confirmed By: Leobardo Wiley
== END 2024-09-01 15:22 | disposition home or self-care (01) ==
LOC: ED 07:52 → 2N 07:52 → SUATTDRO 12:07 → 2N 17:18